=== PATIENT | male | born 1980 | race American Indian/Alaskan Native ===

== ENCOUNTER 2017-02-12 02:45 | Emergency (ER) | payer MEDICAID ==
[2017-02-12 02:46] VITALS: BMI 25.7
[2017-02-12 02:52] VITALS: BP 148/88; PULSE 89; RESP 18; TEMP 98.2; O2SAT 98
--- NOTE | 2017-02-12 03:11 | ED PDOC ---
Arrival/HPI - General Chief Complaint: Abnormal Skin Integrity Time Seen by Provider: 02/12/17 03:00 - History of Present Illness Narrative History of Present Illness (Text): 02/12/17 03:13 Conner Robledo is a 36 year old male, with a history of hypertension, diabetes, and asthma, presents to the emergency department for evaluation of 2 week duration of abscess to right thigh. Denies any surrounding erythema or discharge. Denies fever, chills, headache, dizziness, chest pain, difficulty breathing, or any other complaints at this time. Time/Duration: > week (2 weeks ) Symptom Onset: Gradual Symptom Course: Unchanged Severity Level: Mild Activities at Onset: Light Past Medical History - Provider Review Nursing Documentation Reviewed: Yes - Past History Past History: Non-Contributing - Infectious Disease Hx of Infectious Diseases: None - Tetanus Immunization Tetanus Immunization: Up to Date - Past Medical History Past Medical History: No Previous - Cardiac Hx Cardiac Disorders: Yes Hx Hypertension: Yes - Pulmonary Hx Respiratory Disorders: Yes Hx Asthma: Yes - Neurological Hx Neurological Disorder: No - HEENT Hx HEENT Disorder: No - Renal Hx Renal Disorder: No - Endocrine/Metabolic Hx Endocrine Disorders: Yes Hx Diabetes Mellitus Type 2: Yes (iddm) - Hematological/Oncological Hx Blood Disorders: No - Integumentary Hx Dermatological Disorder: No - Musculoskeletal/Rheumatological Hx Musculoskeletal Disorders: No - Gastrointestinal Hx Gastrointestinal Disorders: No - Genitourinary/Gynecological Hx Genitourinary Disorders: No - Psychiatric Hx Psychophysiologic Disorder: No Hx Substance Use: No - Past Surgical History Past Surgical History: No Previous - Surgical History Other/Comment: Mass removed from left axilla 03/12/15 - Anesthesia Hx Anesthesia: Yes Hx Anesthesia Reactions: No Hx Malignant Hyperthermia: No - Suicidal Assessment Feels Threatened In Home Enviroment: No Family/Social History - Physician Review Nursing Documentation Reviewed: Yes Family/Social History: No Known Family HX Smoking Status: Heavy Smoker > 10 Cigarettes Daily Hx Alcohol Use: Yes Hx Substance Use: No Substance used: marjuana Hx Substance Use Treatment: No Allergies/Home Meds Allergies/Adverse Reactions: Allergies No Known Allergies Allergy (Verified 07/26/16 09:14) Home Medications: Home Meds Medication Instructions Recorded Confirmed Insulin Detemir [Levemir] 10 units SC HS 07/26/16 07/26/16 Insulin Lispro [Humalog (Insulin 20 units SC TID 07/26/16 07/26/16 Lispro)] Review of Systems - Physician Review All systems were reviewed & negative as marked: Yes - Review of Systems Constitutional: Normal. absent: Fatigue, Fevers Respiratory: Normal. absent: SOB, Cough, Sputum Cardiovascular: Normal. absent: Chest Pain Skin: Abscess (right thigh abscess ) Psychiatric: Normal Physical Exam Vital Signs Reviewed: Yes Vital Signs Temp Pulse Resp BP Pulse Ox 02/12/17 02:48 98.2 F 89 18 148/88 98 Temperature: Afebrile Blood Pressure: Normal Pulse: Regular Respiratory Rate: Normal Appearance: Positive for: Well-Appearing, Non-Toxic, Comfortable Pain Distress: None Mental Status: Positive for: Alert and Oriented X 3 - Systems Exam Head: Present: Atraumatic, Normocephalic Pupils: Present: PERRL Conjunctiva: Present: Normal Respiratory/Chest: Present: Clear to Auscultation, Good Air Exchange. No: Respiratory Distress, Accessory Muscle Use Abdomen: Present: Normal Bowel Sounds. No: Tenderness, Distention, Peritoneal Signs Upper Extremity: Present: Normal Inspection. No: Cyanosis, Edema Lower Extremity: Present: Normal Inspection, Other (abscess to right thigh. ) Neurological: Present: GCS=15, CN II-XII Intact, Speech Normal Skin: Present: Warm, Dry, Normal Color. No: Rashes Psychiatric: Present: Alert, Oriented x 3, Normal Insight, Normal Concentration Medical Decision Making ED Course and Treatment: 02/12/17 03:20 Impression: A 36 year old male who presents to the emergency department for evaluation of abscess to right thigh. Progress Notes: I&D performed with minimal drainage. Will discharge patient on Bactrim. - Medication Orders Current Medication Orders: Discontinued Medications Trimethoprim/Sulfamethoxazole (Bactrim Ds Tab) 1 tab PO ONCE ONE PRN Reason: Protocol Stop: 02/12/17 03:23 Last Admin: 02/12/17 03:34 Dose: 1 TAB - Scribe Statement The provider has reviewed the documentation as recorded by the Alvin Banks Provider Attestation: All medical record entries made by the Premibanali were at my direction and personally dictated by me. I have reviewed the chart and agree that the record accurately reflects my personal performance of the history, physical exam, medical decision making, and the department course for this patient. I have also personally directed, reviewed, and agree with the discharge instructions and disposition. Disposition/Present on Arrival - Present on Arrival Any Indicators Present on Arrival: No History of DVT/PE: No History of Uncontrolled Diabetes: No Urinary Catheter: No History of Decub. Ulcer: No History Surgical Site Infection Following: None - Disposition Have Diagnosis and Disposition been Completed?: Yes Diagnosis: Abscess of thigh Disposition: HOME/ ROUTINE Disposition Time: 03:45 Condition: GOOD Discharge Instructions (ExitCare): Abscess (ED) Prescriptions: Sulfamethoxazole/Trimethoprim [Bactrim DS 800 mg-160 mg] 1 tab PO BID #14 tab Incision and Drainage - Consent obtained Consent obtained: Verbal - Performed by Performed by: Attending Physician - Indications Indications: Cutaneous abscess - Location Location: Right (thigh) - Anesthetic Anesthetic: Lidocaine 1% - Procedure Procedure: Usual prep and drape, cm incision (0.5) - Drained Drained: ml pus (3) - Post-procedure Post procedure: Dressed - Complications Complications: None - Patient tolerated procedure Patient tolerated procedure: Well
[2017-02-12] MEDS ORDERED: Tmp-Smz 800 mg-160 mg DS Tab PO ONE (03:22)
== END 2017-02-12 03:45 | disposition home or self-care (01) ==
LOC: ED 02:45
DX: L02.415 Cutaneous abscess of right lower limb (principal); E11.9 Type 2 diabetes mellitus without complications; Z79.4 Long term (current) use of insulin; F17.210 Nicotine dependence, cigarettes, uncomplicated; I10 Essential (primary) hypertension

== ENCOUNTER 2018-02-08 16:36 | Emergency (ER) | payer MEDICAID, OTHER ==
[2018-02-08 16:36] VITALS: BMI 25.7
[2018-02-08 16:44] VITALS: BP 128/88; PULSE 101; RESP 16; TEMP 97.8; O2SAT 98
[2018-02-08] MEDS ORDERED: Lidocaine 2% Viscous 100 ml PO STA (17:27)
--- NOTE | 2018-02-08 17:28 | ED PDOC ---
Arrival/HPI - General Historian: Patient - History of Present Illness Time/Duration: Other Context: Home <Luisa Wells - Last Filed: 02/11/18 23:22> <QuiqueSandrineKelby - Last Filed: 02/12/18 09:52> - General Chief Complaint: ENT Problem Time Seen by Provider: 02/08/18 17:23 - History of Present Illness Narrative History of Present Illness (Text): 02/08/18 17:23 This 37 yo male with pmh DM, presents to this ED c/o sore throat x 2 days. Patient stated it is painful to swallow. Patient denies sob, cp, urinary symptoms, fever, abdominal pain, n/v, or abnormal gait. (Luisa Wells) Past Medical History - Provider Review Nursing Documentation Reviewed: Yes - Past History Past History: Non-Contributing - Infectious Disease Hx of Infectious Diseases: None - Tetanus Immunization Tetanus Immunization: Up to Date - Past Medical History Past Medical History: No Previous - Cardiac Hx Cardiac Disorders: Yes Hx Hypertension: Yes - Pulmonary Hx Respiratory Disorders: Yes Hx Asthma: Yes - Neurological Hx Neurological Disorder: No - HEENT Hx HEENT Disorder: No - Renal Hx Renal Disorder: No - Endocrine/Metabolic Hx Endocrine Disorders: Yes Hx Diabetes Mellitus Type 2: Yes (iddm) - Hematological/Oncological Hx Blood Disorders: No - Integumentary Hx Dermatological Disorder: No - Musculoskeletal/Rheumatological Hx Musculoskeletal Disorders: No - Gastrointestinal Hx Gastrointestinal Disorders: No - Genitourinary/Gynecological Hx Genitourinary Disorders: No - Psychiatric Hx Psychophysiologic Disorder: No Hx Substance Use: Yes - Past Surgical History Past Surgical History: No Previous - Surgical History Other/Comment: Mass removed from left axilla 03/12/15 - Anesthesia Hx Anesthesia: Yes Hx Anesthesia Reactions: No Hx Malignant Hyperthermia: No - Suicidal Assessment Feels Threatened In Home Enviroment: No <Luisa Wells - Last Filed: 02/11/18 23:22> Family/Social History - Physician Review Nursing Documentation Reviewed: Yes Family/Social History: Other (noncontributory) Smoking Status: Heavy Smoker > 10 Cigarettes Daily Hx Alcohol Use: Yes Frequency of alcohol use: Socially Hx Substance Use: Yes Substance used: marjuana Hx Substance Use Treatment: No <Luisa Wells - Last Filed: 02/11/18 23:22> Allergies/Home Meds <Melba Wellsim P - Last Filed: 02/11/18 23:22> <QuiqueJamie - Last Filed: 02/12/18 09:52> Allergies/Adverse Reactions: Allergies No Known Allergies Allergy (Verified 02/08/18 16:38) Home Medications: Home Meds Medication Instructions Recorded Confirmed Insulin Detemir [Levemir] 10 units SC HS 07/26/16 02/08/18 Review of Systems - Review of Systems Constitutional: Normal. absent: Fatigue, Weight Change, Fevers Eyes: Normal ENT: Sore Throat Respiratory: Normal Cardiovascular: Normal Gastrointestinal: Normal Genitourinary Male: Normal Musculoskeletal: Normal Skin: Normal Neurological: Normal Endocrine: Normal Hemo/Lymphatic: Normal Psychiatric: Normal <Wells,Nahim P - Last Filed: 02/11/18 23:22> Physical Exam Temperature: Afebrile Blood Pressure: Normal Pulse: Regular Respiratory Rate: Normal Appearance: Positive for: Well-Appearing, Non-Toxic, Comfortable Pain Distress: None Mental Status: Positive for: Alert and Oriented X 3 - Systems Exam Head: Present: Atraumatic, Normocephalic Pupils: Present: PERRL Extroacular Muscles: Present: EOMI Conjunctiva: Present: Normal Ears: Present: Normal Mouth: Present: Moist Mucous Membranes Pharnyx: Present: ERYTHEMA. No: EXUDATE, TONSILS ENLARGED, Peritonsilar Swelling, Uvular Deviation, Muffled/Hoarse Voice, Strider, Soft Palate/Uvular Edema Neck: Present: Normal Range of Motion, Trachea Midline. No: Meningeal Signs Respiratory/Chest: Present: Clear to Auscultation, Good Air Exchange. No: Respiratory Distress, Accessory Muscle Use, Wheezes, Decreased Breath Sounds, Retracting, Rhonchi, Tachypneic Cardiovascular: Present: Regular Rate and Rhythm, Normal S1, S2. No: Murmurs Abdomen: No: Tenderness Upper Extremity: Present: Normal Inspection, Normal ROM Lower Extremity: Present: Normal Inspection, Normal ROM Neurological: Present: GCS=15, CN II-XII Intact, Speech Normal Skin: Present: Warm, Dry, Normal Color. No: Rashes Psychiatric: Present: Alert, Oriented x 3, Normal Insight, Normal Concentration <Wells,Nahim P - Last Filed: 02/11/18 23:22> Vital Signs Temp Pulse Resp BP Pulse Ox 02/08/18 16:39 97.8 F 101 H 16 128/88 98 Medical Decision Making <Luisa Wells - Last Filed: 02/11/18 23:22> <QuiqueSandrineKelby - Last Filed: 02/12/18 09:52> ED Course and Treatment: 02/08/18 20:57 Case was endorsed to Dr. Vu. Pending repeat FS glucose, and revaluation. (Luisa Wells) - Lab Interpretations Lab Results: 02/08/18 18:30 02/08/18 18:30 Lab Results 02/08/18 22:52: POC Glucose (mg/dL) 313 H 02/08/18 21:02: POC Glucose (mg/dL) 468 H* 02/08/18 20:03: POC Glucose (mg/dL) > 500 H* 02/08/18 18:30: Sodium 130 L, Potassium 5.3 H, Chloride 84 L, Carbon Dioxide 34 H, Anion Gap 18, BUN 31 H, Creatinine 1.4, Est GFR ( Amer) > 60, Est GFR (Non-Af Amer) 56, Random Glucose 736 H* D, Calcium 10.6 H, Total Bilirubin 0.8, AST 28, ALT 42, Alkaline Phosphatase 148 H, Total Protein 8.1, Albumin 4.5, Globulin 3.6, Albumin/Globulin Ratio 1.2 02/08/18 18:30: WBC 9.0, RBC 5.44, Hgb 16.7, Hct 49.4, MCV 90.8, MCH 30.7, MCHC 33.8, RDW 12.6, Plt Count 202, MPV 11.0, Gran % 54.9, Lymph % (Auto) 33.0, Patrick % (Auto) 7.9 H, Eos % (Auto) 3.9, Baso % (Auto) 0.3, Gran # 4.96, Lymph # (Auto ) 3.0, Patrick # (Auto) 0.7 H, Eos # (Auto) 0.4, Baso # (Auto) 0.03 - Medication Orders Current Medication Orders: Discontinued Medications Amoxicillin (Amoxil 500 Mg Cap) 500 mg PO STAT STA PRN Reason: Protocol Stop: 02/08/18 17:27 Last Admin: 02/08/18 20:20 Dose: 500 mg Sodium Chloride (Sodium Chloride 0.9%) 1,000 mls @ 999 mls/hr IV .Q1H1M STA Stop: 02/08/18 19:34 Last Admin: 02/08/18 18:42 Dose: 999 mls/hr eMAR Start Stop Document 02/08/18 18:42 HI (Rec: 02/08/18 18:42 HI [id number]) Intravenous Solution Start Date 02/08/18 Start Time 18:42 Sodium Chloride (Sodium Chloride 0.9%) 1,000 mls @ 999 mls/hr IV .Q1H1M STA Stop: 02/08/18 19:34 Last Admin: 02/08/18 18:42 Dose: 999 mls/hr eMAR Start Stop Document 02/08/18 18:42 HI (Rec: 02/08/18 18:42 HI [id number]) Intravenous Solution Start Date 02/08/18 Start Time 18:42 Insulin Human Regular (Humulin R) 10 units IVP STAT STA Stop: 02/08/18 19:57 Last Admin: 02/08/18 20:20 Dose: 10 units MAR Blood Glucose Document 02/08/18 20:20 HI (Rec: 02/08/18 20:20 HI [id number]) Blood Glucose Finger Stick Blood Glucose (70-120) 500 IVP Administration Document 02/08/18 20:20 HI (Rec: 02/08/18 20:20 HI [id number]) Charges for Administration # of IVP Administrations 1 Insulin Human Regular (Humulin R) 8 units SC STAT STA Stop: 02/08/18 21:19 Last Admin: 02/08/18 21:50 Dose: 8 units Subcutaneous Administrations Document 02/08/18 21:50 HI (Rec: 02/08/18 21:50 HI [id number]) Injection Site MAR Injection Site Left Abdomen Charges for Administration # of Subcutaneous Administrations 1 Lidocaine HCl (Lidocaine 2% Viscous) 15 ml PO STAT STA Stop: 02/08/18 17:42 Last Admin: 02/08/18 20:20 Dose: 15 ml - PA / DISTILLATION OPERATOR HELPER / Resident Statement MD/DO has reviewed & agrees with the documentation as recorded. <Quique,I'Kyori - Last Filed: 02/12/18 09:52> Disposition/Present on Arrival - Present on Arrival Any Indicators Present on Arrival: No History of DVT/PE: No History of Uncontrolled Diabetes: No Urinary Catheter: No History of Decub. Ulcer: No History Surgical Site Infection Following: None - Disposition Have Diagnosis and Disposition been Completed?: Yes Disposition Time: 21:30 <Luisa Wells - Last Filed: 02/11/18 23:22> <Jamie Lei - Last Filed: 02/12/18 09:52> - Disposition Diagnosis: Pharyngitis, Hyperglycemia due to type 1 diabetes mellitus Disposition: HOME/ ROUTINE Condition: GOOD Discharge Instructions (ExitCare): Sore Throat in Adults, Hyperglycemia, Adult (DC) Additional Instructions: Call private doctor for follow up visit in 1-2 days. Return to Emergency if symptoms worsen. Prescriptions: Amoxicillin 875 mg PO BID #20 tab Forms: Handle (Hebrew)
[2018-02-08] MEDS ORDERED: Sodium Chloride 0.9% 1,000 ML IV STA ×2 (18:34)
[2018-02-08 18:48] LABS: BASO # 0.03 K/mm3 (0.0-2.0); BASO % 0.3 % (0.0-3.0); EOS # 0.4 (0.0-0.7); EOS % 3.9 % (1.5-5.0); GRAN # 4.96 (1.4-6.5); GRAN % 54.9 % (50.0-68.0); HEMOGLOBIN 16.7 g/dL (14.0-18.0); MEAN CELL VOLUME 90.8 fl (80.0-105.0); MEAN CORPUSCULAR HEMOGLOBIN 30.7 pg (25.0-35.0); MEAN CORPUSCULAR HGB CONC 33.8 g/dl (31.0-37.0); MONO # 0.7 (0.1-0.6); MONO % 7.9 % (1.0-6.0); RBC 5.44 10^6/uL (3.5-6.1); RED CELL DISTRIBUTION WIDTH 12.6 % (11.5-14.5)
[2018-02-08 18:58] LABS: ALB/GLOB RATIO 1.2 (1.1-1.8); ALBUMIN 4.5 g/dL (3.0-4.8); ALT/SGPT 42 U/L (7-56); AST/SGOT 28 U/L (17-59); BLOOD UREA NITROGEN 31 mg/dL (7-21); CALCIUM 10.6 mg/dL (8.4-10.5); GFR AFRICAN-AMERICAN > 60; GFR NON-AFRICAN AMERICAN 56
[2018-02-08] MEDS ORDERED: Insulin Regular 1 UNITS/0.01 ML ML IVP STA (19:56)
[2018-02-08] MEDS ORDERED: Insulin Regular 1 UNITS/0.01 ML ML SC STA (21:18)
== END 2018-02-08 23:40 | disposition home or self-care (01) ==
LOC: ED 16:36
DX: J02.9 Acute pharyngitis, unspecified (principal); E11.65 Type 2 diabetes mellitus with hyperglycemia; Z79.4 Long term (current) use of insulin; F17.210 Nicotine dependence, cigarettes, uncomplicated
CPT/HCPCS: 80053; 82948; 85025; 96372; 96374; 99283; J7040

== ENCOUNTER 2018-02-15 21:36 | Emergency (ER) | payer MEDICAID ==
[2018-02-15 21:36] VITALS: BMI 25.7
[2018-02-15 22:11] VITALS: BP 147/96; PULSE 93; RESP 18; TEMP 98.1; O2SAT 99
--- NOTE | 2018-02-15 22:27 | ED PDOC ---
Arrival/HPI - General Historian: Patient - History of Present Illness Time/Duration: Other (2 days ago) <Gayatri Cai - Last Filed: 02/15/18 22:34> <Facundo Mina - Last Filed: 02/15/18 22:38> - General Chief Complaint: Abnormal Skin Integrity Time Seen by Provider: 02/15/18 22:22 - History of Present Illness Narrative History of Present Illness (Text): 02/15/18 22:24 37-year-old male presents today for evaluation of 2 superficial lacerations to the right hand over the second and third fingers. Patient states 2 days ago he sustained the lacerations while cutting a lemon. Patient denies numbness weakness or tingling in the extremity. Patient is complaining of slight pain at the laceration site. Patient states his tetanus is up to date. Patient believes it was in 2013. Patient denies fevers or chills. Denies dizziness or weakness. Patient denies limited range of motion of the finger. Patient states he cleaned the wound with peroxide. No other complaints (Gayatri Cai) Past Medical History - Provider Review Nursing Documentation Reviewed: Yes - Travel History Have you recently traveled outside [place] w/in the past 3 mons?: No - Past History Past History: Non-Contributing - Infectious Disease Hx of Infectious Diseases: None - Tetanus Immunization Tetanus Immunization: Up to Date - Past Medical History Past Medical History: No Previous - Cardiac Hx Cardiac Disorders: Yes Hx Hypertension: Yes - Pulmonary Hx Respiratory Disorders: Yes Hx Asthma: Yes - Neurological Hx Neurological Disorder: No - HEENT Hx HEENT Disorder: No - Renal Hx Renal Disorder: No - Endocrine/Metabolic Hx Endocrine Disorders: Yes Hx Diabetes Mellitus Type 2: Yes (iddm) - Hematological/Oncological Hx Blood Disorders: No - Integumentary Hx Dermatological Disorder: No - Musculoskeletal/Rheumatological Hx Musculoskeletal Disorders: No - Gastrointestinal Hx Gastrointestinal Disorders: No - Genitourinary/Gynecological Hx Genitourinary Disorders: No - Psychiatric Hx Psychophysiologic Disorder: No Hx Substance Use: Yes - Past Surgical History Past Surgical History: No Previous - Surgical History Other/Comment: Mass removed from left axilla 03/12/15 - Anesthesia Hx Anesthesia: Yes Hx Anesthesia Reactions: No Hx Malignant Hyperthermia: No - Suicidal Assessment Feels Threatened In Home Enviroment: No <Gayatri Cai - Last Filed: 02/15/18 22:34> Family/Social History - Physician Review Nursing Documentation Reviewed: Yes Family/Social History: Unknown Family HX Smoking Status: Heavy Smoker > 10 Cigarettes Daily Hx Alcohol Use: Yes Hx Substance Use: Yes Substance used: marjuana Hx Substance Use Treatment: No <Gayatri Cai - Last Filed: 02/15/18 22:34> Allergies/Home Meds <Gayatri Cai - Last Filed: 02/15/18 22:34> <Facundo Mina - Last Filed: 02/15/18 22:38> Allergies/Adverse Reactions: Allergies No Known Allergies Allergy (Verified 02/08/18 16:38) Home Medications: Home Meds Medication Instructions Recorded Confirmed Insulin Detemir [Levemir] 10 units SC HS 07/26/16 02/08/18 Review of Systems - Review of Systems Constitutional: absent: Fatigue, Fevers Respiratory: absent: SOB, Cough Cardiovascular: absent: Chest Pain, Palpitations Gastrointestinal: absent: Abdominal Pain, Nausea, Vomiting Musculoskeletal: Arthralgias Skin: Laceration Neurological: absent: Headache, Dizziness Psychiatric: absent: Anxiety, Depression, Suicidal Ideation <Gayatri Cai - Last Filed: 02/15/18 22:34> Physical Exam Vital Signs Reviewed: Yes Temperature: Afebrile Blood Pressure: Hypertensive Pulse: Regular Respiratory Rate: Normal Appearance: Positive for: Well-Appearing, Non-Toxic, Comfortable Pain Distress: None Mental Status: Positive for: Alert and Oriented X 3 - Systems Exam Head: Present: Atraumatic Respiratory/Chest: Present: Clear to Auscultation Cardiovascular: Present: Regular Rate and Rhythm Upper Extremity: Present: Normal ROM, NORMAL PULSES, Neurovascularly Intact, Capillary Refill < 2s, Other (right hand; there is a small 1cm superficial laceration noted to the lateral aspect of the distal 2nd finger and to the distal lateral aspect of the right 3rd finger. lacerations do not affect the nail. full rom of fingers. sensation and distal pulses intact. no erythema; no edema; cap refill <2. ). No: Tenderness, Swelling, Erythema, Deformity Neurological: Present: GCS=15 Skin: Present: Warm, Dry Psychiatric: Present: Alert, Oriented x 3 <Gayatri Cai - Last Filed: 02/15/18 22:34> Vital Signs Temp Pulse Resp BP Pulse Ox 02/15/18 22:08 98.1 F 93 H 18 147/96 H 99 Medical Decision Making <Gayatri Cai - Last Filed: 02/15/18 22:34> <Facundo Mina - Last Filed: 02/15/18 22:38> ED Course and Treatment: 02/15/18 22:27 Patient is nontoxic well appearing in no distress. Vital signs are stable. Wound irrigated well with high pressure irrigation Tetanus up to date; bactrim po wounds are 2 days old; will allow to heal by secondary intention. Bacitracin and dressing applied Patient was advised to keep the wound clean and dry, apply bacitracin twice daily. advised patient to take keflex as prescribed. Advised to return immediately if signs of infection develop or return if any other concerning symptoms develop. advised patient of elevated blood pressure and need for f/u with PMD. Patient verbalizes understanding of discharge instructions and need for immediate followup. all aspects of this case were discussed the attending of record. Impression: Laceration, fingers tylenol every 4 hours as needed for pain bactrim; 1 tablet twice daily x 7 days. Keep the wound clean and dry, apply bacitracin twice daily Return immediately if signs of infection develop: High fevers, increasing pain, redness, swelling, purulent discharge Follow up with the hand specialist within the next 2 days. Followup with primary care physician within the next 2 days regarding your elevated blood pressure. Return if any other concerning symptoms develop (Gayatri Cai) - Medication Orders Current Medication Orders: Discontinued Medications Trimethoprim/Sulfamethoxazole (Bactrim Ds Tab) 1 tab PO STAT STA PRN Reason: Protocol Stop: 02/15/18 22:32 - PA / CERTIFIED PATHOLOGY ASSISTANT / Resident Statement MD/DO has reviewed & agrees with the documentation as recorded. <Facundo Mina - Last Filed: 02/15/18 22:38> Disposition/Present on Arrival - Present on Arrival Any Indicators Present on Arrival: No History of DVT/PE: No History of Uncontrolled Diabetes: No Urinary Catheter: No History of Decub. Ulcer: No History Surgical Site Infection Following: None - Disposition Have Diagnosis and Disposition been Completed?: Yes Disposition Time: 22:30 Patient Plan: Discharge <Gayatri Cai - Last Filed: 02/15/18 22:34> <Facudno Mina - Last Filed: 02/15/18 22:38> - Disposition Diagnosis: Laceration of fingers without complication Disposition: HOME/ ROUTINE Patient Problems: Current Active Problems Problem Status Onset Laceration of fingers without complication Acute Condition: GOOD Discharge Instructions (ExitCare): Wound Care (DC) Additional Instructions: tylenol every 4 hours as needed for pain bactrim; 1 tablet twice daily x 7 days. Keep the wound clean and dry, apply bacitracin twice daily Return immediately if signs of infection develop: High fevers, increasing pain, redness, swelling, purulent discharge Follow up with the hand specialist within the next 2 days. Followup with primary care physician within the next 2 days regarding your elevated blood pressure. Return if any other concerning symptoms develop Prescriptions: Sulfamethoxazole/Trimethoprim [Bactrim DS 800 mg-160 mg] 1 tab PO BID #14 tab Referrals: Brett Jaimes MD [Staff Provider] - Follow up with primary Mustapha Espitia DO [Staff Provider] - Follow up with primary Forms: [email or web address] (Mauritanian), WORK NOTE
[2018-02-15] MEDS ORDERED: Tmp-Smz 800 mg-160 mg DS Tab PO STA (22:31)
== END 2018-02-15 23:00 | disposition home or self-care (01) ==
LOC: ED 21:36
DX: S61.411A Laceration without foreign body of right hand, initial encounter (principal); W45.8XXA Other foreign body or object entering through skin, initial encounter; E11.9 Type 2 diabetes mellitus without complications; Z79.4 Long term (current) use of insulin; I10 Essential (primary) hypertension; F17.210 Nicotine dependence, cigarettes, uncomplicated

== ENCOUNTER 2018-02-18 18:53 | Emergency (ER) | payer MEDICAID ==
[2018-02-18 18:53] VITALS: BMI 25.7
[2018-02-18 19:11] VITALS: TEMP 98.7
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
[2018-02-19 05:13] VITALS: BP 134/76; PULSE 88; RESP 22; O2SAT 98
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
== END 2018-02-18 23:15 | disposition home or self-care (01) ==
LOC: ED 18:53
DX: S09.90XA Unspecified injury of head, initial encounter (principal); Y08.89XA Assault by other specified means, initial encounter; Y92.9 Unspecified place or not applicable

== ENCOUNTER 2018-03-29 11:33 | Emergency (ER) | payer MEDICAID ==
[2018-03-29 11:44] VITALS: BMI 21.6
[2018-03-29 11:46] VITALS: RESP 18; TEMP 98.7
--- NOTE | 2018-03-29 12:05 | ED PDOC ---
Arrival/HPI - General Time Seen by Provider: 03/29/18 12:00 Historian: Patient - History of Present Illness Narrative History of Present Illness (Text): 03/29/18 12:02 38yo male with PMHx of Diabetes who present with left lower molar toothache x days. States he didn't take any pain medication. He came to ED today for the persistent pain. Denies any other complaint. Past Medical History - Provider Review Nursing Documentation Reviewed: Yes - Past History Past History: Non-Contributing - Infectious Disease Hx of Infectious Diseases: None - Tetanus Immunization Tetanus Immunization: Up to Date - Past Medical History Past Medical History: No Previous - Cardiac Hx Cardiac Disorders: Yes Hx Hypertension: Yes - Pulmonary Hx Respiratory Disorders: Yes Hx Asthma: Yes - Neurological Hx Neurological Disorder: No - HEENT Hx HEENT Disorder: No - Renal Hx Renal Disorder: No - Endocrine/Metabolic Hx Endocrine Disorders: Yes Hx Diabetes Mellitus Type 2: Yes (iddm) - Hematological/Oncological Hx Blood Disorders: No - Integumentary Hx Dermatological Disorder: No - Musculoskeletal/Rheumatological Hx Musculoskeletal Disorders: No - Gastrointestinal Hx Gastrointestinal Disorders: No - Genitourinary/Gynecological Hx Genitourinary Disorders: No - Psychiatric Hx Psychophysiologic Disorder: No Hx Substance Use: Yes - Past Surgical History Past Surgical History: No Previous - Surgical History Other/Comment: Mass removed from left axilla 03/12/15 - Anesthesia Hx Anesthesia: Yes Hx Anesthesia Reactions: No Hx Malignant Hyperthermia: No - Suicidal Assessment Feels Threatened In Home Enviroment: No Family/Social History - Physician Review Nursing Documentation Reviewed: Yes Family/Social History: Unknown Family HX Smoking Status: Heavy Smoker > 10 Cigarettes Daily Hx Alcohol Use: Yes Hx Substance Use: Yes Substance used: marjuana Hx Substance Use Treatment: No Allergies/Home Meds Allergies/Adverse Reactions: Allergies No Known Allergies Allergy (Verified 02/18/18 19:04) Review of Systems - Physician Review All systems were reviewed & negative as marked: Yes - Review of Systems Constitutional: Normal Eyes: Normal ENT: Other (toothache) Respiratory: Normal Cardiovascular: Normal Gastrointestinal: Normal Genitourinary Male: Normal Musculoskeletal: Normal Skin: Normal Neurological: Normal Endocrine: Normal Hemo/Lymphatic: Normal Psychiatric: Normal Physical Exam Vital Signs Reviewed: Yes Vital Signs Temp Pulse Resp BP Pulse Ox 03/29/18 11:44 98.7 F 89 18 120/78 97 Temperature: Afebrile Blood Pressure: Normal Pulse: Regular Respiratory Rate: Normal Appearance: Positive for: Well-Appearing, Non-Toxic, Comfortable Pain Distress: None Mental Status: Positive for: Alert and Oriented X 3 - Systems Exam Head: Present: Atraumatic, Normocephalic Pupils: Present: PERRL Extroacular Muscles: Present: EOMI Conjunctiva: Present: Normal Mouth: Present: Moist Mucous Membranes, Normal Teeth (No loose tooth. No gum swelling) Neck: Present: Normal Range of Motion Respiratory/Chest: Present: Clear to Auscultation, Good Air Exchange. No: Respiratory Distress, Accessory Muscle Use Cardiovascular: Present: Regular Rate and Rhythm, Normal S1, S2. No: Murmurs Abdomen: No: Tenderness, Distention, Peritoneal Signs Back: Present: Normal Inspection Upper Extremity: Present: Normal Inspection. No: Cyanosis, Edema Lower Extremity: Present: Normal Inspection. No: Edema Neurological: Present: GCS=15, CN II-XII Intact, Speech Normal Skin: Present: Warm, Dry, Normal Color. No: Rashes Psychiatric: Present: Alert, Oriented x 3, Normal Insight, Normal Concentration Disposition/Present on Arrival - Present on Arrival Any Indicators Present on Arrival: No History of DVT/PE: No History of Uncontrolled Diabetes: No Urinary Catheter: No History Surgical Site Infection Following: None - Disposition Have Diagnosis and Disposition been Completed?: Yes Diagnosis: Dental caries Disposition: HOME/ ROUTINE Disposition Time: 12:05 Patient Plan: Discharge Condition: STABLE Discharge Instructions (ExitCare): Dental Pain (DC) Additional Instructions: Follow up with a Dentist Return to ED for any new or worsening symptoms Prescriptions: Amoxicillin 500 mg PO TID #21 tablet Ibuprofen [Motrin Tab] 600 mg PO Q6 #20 tab Referrals: [facility] [place] - Follow up with primary
[2018-03-29 12:34] VITALS: BP 124/72; PULSE 82; O2SAT 99
== END 2018-03-29 12:33 | disposition home or self-care (01) ==
LOC: ED 11:33
DX: K02.9 Dental caries, unspecified (principal); E11.9 Type 2 diabetes mellitus without complications; I10 Essential (primary) hypertension; F17.210 Nicotine dependence, cigarettes, uncomplicated

== ENCOUNTER 2018-03-31 17:20 | Emergency (ER) | payer MEDICAID ==
[2018-03-31 17:20] VITALS: BMI 21.6
[2018-03-31] MEDS ORDERED: Sodium Chloride 0.9% 1,000 ML IV STA (17:58)
[2018-03-31 18:26] LABS: BASO # 0.03 K/mm3 (0.0-2.0); BASO % 0.5 % (0.0-3.0); EOS # 0.2 (0.0-0.7); EOS % 3.4 % (1.5-5.0); GRAN # 3.97 (1.4-6.5); GRAN % 61.9 % (50.0-68.0); HEMOGLOBIN 13.7 g/dL (14.0-18.0); LYMPH # 1.7 (1.2-3.4); LYMPH % 26.9 % (22.0-35.0); MEAN CELL VOLUME 89.9 fl (80.0-105.0); MEAN CORPUSCULAR HGB CONC 33.3 g/dl (31.0-37.0); MEAN PLATELET VOLUME 10.4 fl (7.0-11.0); MONO # 0.5 (0.1-0.6); MONO % 7.3 % (1.0-6.0); RBC 4.57 10^6/uL (3.5-6.1); RED CELL DISTRIBUTION WIDTH 14.2 % (11.5-14.5); WHITE BLOOD COUNT 6.4 10^3/ul (4.5-11.0)
--- NOTE | 2018-03-31 18:37 | RAD ---
HISTORY: r/o infiltrate COMPARISON: 03/04/2015. FINDINGS: LUNGS: The lungs are well inflated and clear. PLEURA: No significant pleural effusion identified, no pneumothorax apparent. CARDIOVASCULAR: Normal. OSSEOUS STRUCTURES: No significant abnormalities. VISUALIZED UPPER ABDOMEN: Normal. OTHER FINDINGS: None. IMPRESSION: No active pulmonary disease.
--- NOTE | 2018-03-31 18:40 | ED PDOC ---
Arrival/HPI - General Chief Complaint: Altered Mental Status Time Seen by Provider: 03/31/18 17:22 Historian: Patient - History of Present Illness Narrative History of Present Illness (Text): 03/31/18 18:39 A 38 year old male, whose past medical history includes diabetes, is brought into the emergency department via BLS. As per EMS, patient was initially altered. Patient is awake and alert in the emergency department. He states that he was mildly dizzy. He admits to occasional alcohol use. The patient denies fevers, chills, headache, chest pain, shortness of breath, dyspnea on exertion, cough, abdominal pain, nausea, vomiting, diarrhea, back pain, neck pain, urinary /bowel changes, drug use, or any other complaint. Time/Duration: Prior to Arrival Symptom Onset: Sudden Symptom Course: Unchanged Activities at Onset: Rest, Light Context: Home Past Medical History - Provider Review Nursing Documentation Reviewed: Yes - Past History Past History: Non-Contributing - Infectious Disease Hx of Infectious Diseases: None - Tetanus Immunization Tetanus Immunization: Up to Date - Past Medical History Past Medical History: No Previous - Cardiac Hx Cardiac Disorders: Yes Hx Hypertension: Yes - Pulmonary Hx Respiratory Disorders: Yes Hx Asthma: Yes - Neurological Hx Neurological Disorder: No - HEENT Hx HEENT Disorder: No - Renal Hx Renal Disorder: No - Endocrine/Metabolic Hx Endocrine Disorders: Yes Hx Diabetes Mellitus Type 2: Yes (iddm) - Hematological/Oncological Hx Blood Disorders: No - Integumentary Hx Dermatological Disorder: No - Musculoskeletal/Rheumatological Hx Musculoskeletal Disorders: No - Gastrointestinal Hx Gastrointestinal Disorders: No - Genitourinary/Gynecological Hx Genitourinary Disorders: No - Psychiatric Hx Psychophysiologic Disorder: No Hx Substance Use: Yes - Past Surgical History Past Surgical History: No Previous - Surgical History Other/Comment: Mass removed from left axilla 03/12/15 - Anesthesia Hx Anesthesia: Yes Hx Anesthesia Reactions: No Hx Malignant Hyperthermia: No - Suicidal Assessment Feels Threatened In Home Enviroment: No Family/Social History - Physician Review Nursing Documentation Reviewed: Yes Family/Social History: No Known Family HX Smoking Status: Light Smoker < 10 Cigarettes Daily Hx Alcohol Use: Yes Frequency of alcohol use: Few days per week Hx Substance Use: Yes Substance used: marjuana Hx Substance Use Treatment: No Allergies/Home Meds Allergies/Adverse Reactions: Allergies No Known Allergies Allergy (Verified 03/31/18 17:35) Home Medications: Home Meds Medication Instructions Recorded Confirmed Unobtainable 03/31/18 03/31/18 Review of Systems - Physician Review All systems were reviewed & negative as marked: Yes - Review of Systems Constitutional: absent: Fevers, Night Sweats Respiratory: absent: SOB, Cough Cardiovascular: absent: Chest Pain, BANSAL Gastrointestinal: absent: Abdominal Pain, Stool Changes, Diarrhea, Nausea, Vomiting Genitourinary Male: absent: Urinary Output Changes Musculoskeletal: absent: Back Pain, Neck Pain Neurological: Dizziness. absent: Headache Physical Exam Vital Signs Reviewed: Yes Vital Signs Temp Pulse Resp BP Pulse Ox 03/31/18 17:40 97.9 F 104 H 20 139/74 98 Temperature: Afebrile Blood Pressure: Normal Pulse: Tachycardic Respiratory Rate: Normal Appearance: Positive for: Well-Appearing, Non-Toxic, Comfortable Pain Distress: None Mental Status: Positive for: Alert and Oriented X 3 - Systems Exam Head: Present: Atraumatic, Normocephalic Pupils: Present: PERRL Extroacular Muscles: Present: EOMI Conjunctiva: Present: Normal Mouth: Present: Moist Mucous Membranes Neck: Present: Normal Range of Motion Respiratory/Chest: Present: Clear to Auscultation, Good Air Exchange. No: Respiratory Distress, Accessory Muscle Use Cardiovascular: Present: Regular Rate and Rhythm, Normal S1, S2. No: Murmurs Abdomen: No: Tenderness, Distention, Peritoneal Signs Back: Present: Normal Inspection Upper Extremity: Present: Normal Inspection. No: Cyanosis, Edema Lower Extremity: Present: Normal Inspection. No: Edema Neurological: Present: GCS=15, CN II-XII Intact, Speech Normal Skin: Present: Warm, Dry, Normal Color. No: Rashes Psychiatric: Present: Alert, Oriented x 3, Normal Insight, Normal Concentration Medical Decision Making ED Course and Treatment: 03/31/18 18:39 Impression: Plan: -- EKG -- Chest X-ray -- Labs -- Urine Culture -- Urinalysis -- IV Fluids -- Reassess and disposition Progress Notes: EKG: Ordered, reviewed, and independently interpreted the EKG. Rate : 91 BPM Rhythm : NSR Interpretation : Normal axis.Normal rate. Chest X-ray Dictated By: Carmen Alex MD Dictated Date/Time: 03/31/18 18:35 IMPRESSION: No active pulmonary disease. - Lab Interpretations Lab Results: 03/31/18 18:08 03/31/18 20:21 Lab Results 03/31/18 20:21: Sodium 141, Potassium 4.3, Chloride 102, Carbon Dioxide 29, Anion Gap 14, BUN 18, Creatinine 0.9, Est GFR ( Amer) > 60, Est GFR (Non- Af Amer) > 60, Random Glucose 313 H* D, Calcium 9.2, Magnesium 1.5 L, Total Bilirubin 0.6, AST 13 L D, ALT 23, Alkaline Phosphatase 74, Lactate Dehydrogenase 313 L, Total Creatine Kinase 87, Troponin I < 0.01, Total Protein 6.7, Albumin 3.8, Globulin 2.9, Albumin/Globulin Ratio 1.3 03/31/18 18:08: Alcohol, Quantitative < 10 03/31/18 18:08: WBC 6.4 D, RBC 4.57, Hgb 13.7 L D, Hct 41.1 L, MCV 89.9, MCH 30.0, MCHC 33.3, RDW 14.2, Plt Count 220, MPV 10.4, Gran % 61.9, Lymph % (Auto) 26.9, Gillespie % (Auto) 7.3 H, Eos % (Auto) 3.4, Baso % (Auto) 0.5, Gran # 3.97, Lymph # (Auto) 1.7, Gillespie # (Auto) 0.5, Eos # (Auto) 0.2, Baso # (Auto) 0.03 I have reviewed the lab results: Yes - RAD Interpretation Radiology Orders: 03/31/18 17:40 CHEST PORTABLE [RAD] Stat - EKG Interpretation Interpreted by ED Physician: Yes Type: 12 lead EKG - Medication Orders Current Medication Orders: Discontinued Medications Sodium Chloride (Sodium Chloride 0.9%) 1,000 mls @ 999 mls/hr IV .Q1H1M STA Stop: 03/31/18 18:58 Last Admin: 03/31/18 18:17 Dose: 999 mls/hr eMAR Start Stop Document 03/31/18 18:17 [facility] (Rec: 03/31/18 18:17 [id number]) Intravenous Solution Start Date 03/31/18 Start Time 18:17 End Date 03/31/18 End time 19:17 Total Infusion Time 60 - Scribe Statement The provider has reviewed the documentation as recorded by the Scribe Lizbet Lin Provider Alvin Attestation: All medical record entries made by the Scribe were at my direction and personally dictated by me. I have reviewed the chart and agree that the record accurately reflects my personal performance of the history, physical exam, medical decision making, and the department course for this patient. I have also personally directed, reviewed, and agree with the discharge instructions and disposition. Disposition/Present on Arrival - Present on Arrival Any Indicators Present on Arrival: No History of DVT/PE: No History of Uncontrolled Diabetes: No Urinary Catheter: No History of Decub. Ulcer: No History Surgical Site Infection Following: None - Disposition Have Diagnosis and Disposition been Completed?: Yes Diagnosis: Hyperglycemia Disposition: HOME/ ROUTINE Disposition Time: 20:30 Patient Problems: Current Active Problems Problem Status Onset Hyperglycemia Acute Condition: IMPROVED Discharge Instructions (ExitCare): Hyperglycemia, Adult (DC), Diabetes and Diet Additional Instructions: Thank you for letting us take care of you today. The emergency medical care you received today was directed at your acute symptoms. If you were prescribed any medication, please fill it and take as directed. It may take several days for your symptoms to resolve. Return to the Emergency Department if your symptoms worsen, do not improve, or if you have any other problems. Please contact your doctor or call one of the physicians/clinics you have been referred to that are listed on the Patient Visit Information form that is included in your discharge packet. Bring any paperwork you were given at discharge with you along with any medications you are taking to your follow up visit. Our treatment cannot replace ongoing medical care by a primary care provider (PCP) outside of the emergency department. Thank you for allowing the [facility] team to be part of your care today. Follow up with your primary care doctor in 2-3 days for re-evaluation and further management. Referrals: Algaeonrios Lindsey Relico, [Primary Care Provider] - Follow up with primary Forms: [employer] (French)
[2018-03-31 20:48] LABS: ALB/GLOB RATIO 1.3 (1.1-1.8); ALBUMIN 3.8 g/dL (3.0-4.8); ALT/SGPT 23 U/L (7-56); AST/SGOT 13 U/L (17-59); BLOOD UREA NITROGEN 18 mg/dL (7-21); CALCIUM 9.2 mg/dL (8.4-10.5); GFR AFRICAN-AMERICAN > 60; GFR NON-AFRICAN AMERICAN > 60
[2018-03-31 21:25] LABS: TROPONIN I < 0.01 ng/mL
--- NOTE | 2018-03-31 22:27 | CARD ---
APPROVED REPORT EKG Measurement Heart [id number] <Conclusion> Normal sinus rhythm Normal ECG
[2018-03-31 22:36] VITALS: BP 136/76; PULSE 88; RESP 18; TEMP 98.1; O2SAT 99
== END 2018-03-31 21:22 | disposition home or self-care (01) ==
LOC: ED 17:20
DX: E11.65 Type 2 diabetes mellitus with hyperglycemia (principal); Z79.4 Long term (current) use of insulin; I10 Essential (primary) hypertension; F17.210 Nicotine dependence, cigarettes, uncomplicated
CPT/HCPCS: 71045; 80053; 80320; 82550; 83615; 83735; 84484; 85025; 93005; 96360; 99284; J7030

== ENCOUNTER 2018-04-03 11:58 | Emergency (ER) | payer MEDICAID ==
[2018-04-03 12:01] VITALS: BMI 21.6
[2018-04-03 12:13] VITALS: BP 119/91; PULSE 87; RESP 18; TEMP 98.2; O2SAT 100
[2018-04-03] MEDS ORDERED: Oxycodone/Acetaminophen 5/325 mg Tab PO STA (12:17)
--- NOTE | 2018-04-03 12:30 | ED PDOC ---
Arrival/HPI - General Chief Complaint: Back Pain Time Seen by Provider: 04/03/18 12:07 Historian: Patient - History of Present Illness Narrative History of Present Illness (Text): 04/03/18 12:17 pt p/w + 1 day onset of atrumatic neck pain/stiffness, right > left; pt states he usually sleeps on his left side; pt states pain worse today after waking up; pt denied fall/trauma/sick contact, travel; pt states no arm weakness/numbness/ tingling, no fever/chills/sweats, no sore throat, no vision changes, no cp/sob/ abd pain, no n/v, no urinary/bowel changes; pt had been to the Emergency department frequently over the last few weeks; pt denied any recent drug use; pt denied other complaints pt is here for further eval. [facility] pt is left hand dominate Time/Duration: 24 hours Symptom Onset: Sudden Symptom Course: Unchanged Quality: Tightness, Cramping Severity Level: Severe Activities at Onset: Rest Context: Home Past Medical History - Provider Review Nursing Documentation Reviewed: Yes - Travel History Have you recently traveled outside [place] w/in the past 3 mons?: No - Past History Past History: Non-Contributing - Infectious Disease Hx of Infectious Diseases: None - Tetanus Immunization Tetanus Immunization: Up to Date - Past Medical History Past Medical History: No Previous - Cardiac Hx Cardiac Disorders: Yes Hx Hypertension: Yes - Pulmonary Hx Respiratory Disorders: Yes Hx Asthma: Yes - Neurological Hx Neurological Disorder: No - HEENT Hx HEENT Disorder: No - Renal Hx Renal Disorder: No - Endocrine/Metabolic Hx Endocrine Disorders: Yes Hx Diabetes Mellitus Type 2: Yes (iddm) - Hematological/Oncological Hx Blood Disorders: No - Integumentary Hx Dermatological Disorder: No - Musculoskeletal/Rheumatological Hx Musculoskeletal Disorders: No - Gastrointestinal Hx Gastrointestinal Disorders: No - Genitourinary/Gynecological Hx Genitourinary Disorders: No - Psychiatric Hx Psychophysiologic Disorder: No Hx Substance Use: Yes - Past Surgical History Past Surgical History: No Previous - Surgical History Other/Comment: Mass removed from left axilla 03/12/15 - Anesthesia Hx Anesthesia: Yes Hx Anesthesia Reactions: No Hx Malignant Hyperthermia: No - Suicidal Assessment Feels Threatened In Home Enviroment: No Family/Social History - Physician Review Nursing Documentation Reviewed: Yes Family/Social History: No Known Family HX Smoking Status: Light Smoker < 10 Cigarettes Daily Hx Alcohol Use: Yes Hx Substance Use: Yes [facility] Hx Substance Use Treatment: No Allergies/Home Meds Allergies/Adverse Reactions: Allergies No Known Allergies Allergy (Verified 03/31/18 17:35) Review of Systems - Review of Systems Constitutional: Normal Eyes: Normal ENT: Normal Respiratory: Normal Cardiovascular: Normal Gastrointestinal: Normal Genitourinary Male: Normal Musculoskeletal: Neck Pain. absent: Arthralgias, Back Pain, Joint Swelling, Myalgias Skin: Normal Neurological: Normal Endocrine: Normal Hemo/Lymphatic: Normal Psychiatric: Normal Physical Exam - Physical Exam Narrative Physical Exam (Text): 04/03/18 12:18 General: alert/awake, GCS = 15, oriented x 3, resting in bed, uncomfortable, cooperative, interactive; mild distress due to pain Head: NC/AT EYE: PERRLA, EOMI, sclera anicteric, no nystagmus, no photophobia; visual field intact b/l Facial: WNL Oral: uvula/tongue are midline, no exudate/lesions, no drooling/stridor, no dysphonia; fair dentitions; moist oral mucosa NECK: mild decr ROM (looking to his right is more difficult for the patient than left, and hyperextension/flexion of the neck gave patient some difficulty) , pt is able to range his neck however, no midline tenderness, no nuchal rigidity, no meningeal signs; no step off Chest: CTA b/l, no w/r/r; no tachypenia, no accessory muscle use noted Chest Wall: no crepitus, no lesions, no gross deformities, no focal tenderness Cardiac: +S1, +S2, no m/r/r, no tachycardia Abdominal: +BS, soft/nd/nt, well nourished patient; no masses/rebound/guarding/ rigidity; no zhu's sign, no mcburney's point tenderness Extremities: intact ROM, strength 5/5 grossly intact in all limbs, neurovasc intact b/l; + ambulatory; reflex +2/2; pt is able to shrug b/l shoulder with ease; no focal weakness noted BACK: no step off, no midline tenderness, NO crepitus, no gross deformities noted; Intact ROM SKIN: cap refill < 1 sec, no ulcerations, no petechiae, no rashes; no pallor NEURO: CNII-XII WNL, no facial asymmetries, no slurr speech, oriented x 3 NIH stroke scale ~ 0 Psych: normal insight, flat affect; follows command with ease Vital Signs Reviewed: Yes Vital Signs Temp Pulse Resp BP Pulse Ox 04/03/18 12:01 98.2 F 87 18 119/91 H 100 Temperature: Afebrile Blood Pressure: Hypertensive Pulse: Regular Respiratory Rate: Normal Appearance: Positive for: Well-Appearing, Non-Toxic, Uncomfortable. No: Ill- Appearing, Unkept Pain Distress: Mild Mental Status: Positive for: Alert and Oriented X 3 - Systems Exam Head: Present: Atraumatic, Normocephalic Medical Decision Making ED Course and Treatment: 04/03/18 12:15 Impression: right sided neck pain/stiffness, atrumatic i have consider all the differential diagnosis regarding pt's chief medical complaints/clinical findings, including but are not limited to: cervical strain , unlikely torticollis, unlikely meningitis A/P: neck pain/stiffness - ct - accucheck - supportive care - observe/reevaluation 04/03/18 13:12 pt is doing well currently pt is able to range his neck with some improvement compare to initial evaluation , after medications provided for the patient pt is awaiting his diagnostic results 04/03/18 13:57 pt remained comfortable pt is not in any distress pt is made aware of his medical results pt is encouraged avoid heavy lifting pt is encouraged avoid sleeping on his side pt is encouraged no drug use/smoking/drinking alcohol pt is encouraged outpt f/u pt will be discharged home Re-evaluation Time: 13:12 Reassessment Condition: Improving,but remains with symptoms - Lab Interpretations I have reviewed the lab results: Yes Interpretation: All labs normal - RAD Interpretation Narrative RAD Interpretations (Text): 04/03/18 13:50 This report is currently processing and HAS NOT BEEN OFFICIALLY SIGNED BY THE PHYSICIAN - ESTIMATED TIME OF APPROVAL IS 04/03/2018 13:55. PROCEDURE: CT Cervical Spine without contrast HISTORY: Neck stiffness and pain. No trauma. COMPARISON: None available. TECHNIQUE: Contiguous helical/ transaxial computed tomography images were obtained of the cervical spine without the use of intravenous contrast. Coronal and sagittal reformatted images were created and reviewed. Radiation dose: Total exam DLP = 668.81 mGy-cm. This CT exam was performed using one or more of the following dose reduction techniques: Automated exposure control, adjustment of the mA and/or kV according to patient size, and/or use of iterative reconstruction technique. . FINDINGS: VERTEBRAE: The current study reveals no acute compression fractures no retropulsed fragments. . There is mild chronic appearing anterior stature loss of the C5 and C6 segments felt to be degenerative in origin. The remaining vertebral bodies otherwise exhibit normal stature. And facets. There is rather mild reversal of the normal upper cervical lordosis however vertebral bodies are otherwise normally aligned. Facets exhibit normal alignment. DISCS/SPINAL CANAL/NEURAL FORAMINA: Degenerative spondylosis. At the C5-C6 level, there is disc space narrowing more so along the anterior disc margin with broad-based though somewhat asymmetric disc bulge larger on the right than left with compression of the ventral surface of the thecal sac and spinal cord again more so on the right than left. Central canal appears slightly narrowed at this level as well. The uncovertebral joints are hypertrophic left greater than right. Right exit foramen adequate. Left exit foramen is marginal to slightly narrowed. At the C4-C5 level, there is mild anterior disc space narrowing. Minimal the asymmetric disc bulge slightly larger on the left than right results in some flattening of the ventral surface of the thecal sac. The disc appears to reach the ventral surface of the spinal cord. Exit foramina adequate. . At the C3-C4 level, there is small central and bilateral disc bulge asymmetrically larger on the left than right that indents the ventral surface of the thecal sac and may minimally flatten the ventral surface of the cord. Central canal is slightly narrowed. Exit foramina are adequate bilaterally. PARASPINAL SOFT TISSUES: Unremarkable. OTHER FINDINGS: Lung apices clear. IMPRESSION: No acute fractures. Chronic anterior stature loss of the C5 and C6 segments felt to be degenerative in origin. Multilevel degenerative spondylosis most significantly affecting C5-C6 through the C3-C4 levels as detailed above. 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 Yes Sleep Is patient sleeping during reassessment? No Presence of Pain Presence of Pain Yes Pain Scale Used Pain Scale Used Numeric Location Pain Location Body Site Neck Description Description Constant Intensity of Pain at present 9 Aggravating Factors ADL's IM Administration Charges Document 04/03/18 12:30 OCS (Rec: 04/03/18 12:30 OCS [id number]) Injection Site MAR Injection Site Left Deltoid Charges for Administration # of IM Administrations 1 Oxycodone/Acetaminophen (Percocet 5/325 Mg Tab) 1 tab PO STAT STA Stop: 04/03/18 12:18 Last Admin: 04/03/18 12:30 Dose: 1 tab MAR Pain Assessment Document 04/03/18 12:30 OCS (Rec: 04/03/18 12:30 OCS [id number]) Pain Reassessment Is this a pain reassessment? Yes Sleep Is patient sleeping during reassessment? No Presence of Pain Presence of Pain Yes Location Pain Location Body Site Neck Description Description Constant Intensity of Pain at present 9 Aggravating Factors ADL's Disposition/Present on Arrival - Present on Arrival Any Indicators Present on Arrival: No History of DVT/PE: No History of Uncontrolled Diabetes: No Urinary Catheter: No History of Decub. Ulcer: No History Surgical Site Infection Following: None - Disposition Have Diagnosis and Disposition been Completed?: Yes Diagnosis: Cervical muscle strain, General medical exam Disposition: HOME/ ROUTINE Disposition Time: 13:50 Patient Plan: Discharge Condition: STABLE Discharge Instructions (ExitCare): Muscle Strain (DC), Cervical Muscle Strain ( DC) Print Language: GREEK Additional Instructions: Make sure to see your doctor in 1-2 days DRINK PLENTY OF FLUIDS DONT SMOKE DONT DO DRUGS DONT Drink alcohol take your medications as prescribed try to sleep on your back, and avoid sleeping on your side AVOID heavy lifting RETURN TO ED IF worse pain, cant breath, persistent vomiting, high fever >101- 102 for hours, altered behavior, slurr speech, facial changes, focal weakness ( arm/leg or both), cant feel your arm/legs, unable to urinate, heavy/persistent bleeding, passing out, chest pain, or other medical emergencies Prescriptions: diaZEpam [Valium] 5 mg PO TID PRN #10 tab PRN Reason: Muscle Spasm Ibuprofen [Motrin] 600 mg PO QID PRN #30 tab PRN Reason: Pain, Mild (1-3) oxyCODONE/Acetaminophen [Percocet 5/325 mg Tab] 1 ea PO TID PRN #10 tab PRN Reason: Pain, Moderate (4-7) Referrals: PCP,NO [Non-Staff] - Follow up with primary Asmita Brennan MD [Staff Provider] - Follow up with primary [facility] [Outside] - Follow up with primary [facility] [Outside] - Follow up with primary [facility] [Outside] - Follow up with primary Forms: [employer] (Maori)
--- NOTE | 2018-04-03 13:51 | CT ---
PROCEDURE: CT Cervical Spine without contrast HISTORY: Neck stiffness and pain. No trauma. COMPARISON: None available. TECHNIQUE: Contiguous helical/ transaxial computed tomography images were obtained of the cervical spine without the use of intravenous contrast. Coronal and sagittal reformatted images were created and reviewed. Radiation dose: Total exam DLP = 668.81 mGy-cm. This CT exam was performed using one or more of the following dose reduction techniques: Automated exposure control, adjustment of the mA and/or kV according to patient size, and/or use of iterative reconstruction technique. . FINDINGS: VERTEBRAE: The current study reveals no acute compression fractures no retropulsed fragments. . There is mild chronic appearing anterior stature loss of the C5 and C6 segments felt to be degenerative in origin. The remaining vertebral bodies otherwise exhibit normal stature. And facets. There is rather mild reversal of the normal upper cervical lordosis however vertebral bodies are otherwise normally aligned. Facets exhibit normal alignment. DISCS/SPINAL CANAL/NEURAL FORAMINA: Degenerative spondylosis. At the C5-C6 level, there is disc space narrowing more so along the anterior disc margin with broad-based though somewhat asymmetric disc bulge larger on the right than left with compression of the ventral surface of the thecal sac and spinal cord again more so on the right than left. Central canal appears slightly narrowed at this level as well. The uncovertebral joints are hypertrophic left greater than right. Right exit foramen adequate. Left exit foramen is marginal to slightly narrowed. At the C4-C5 level, there is mild anterior disc space narrowing. Minimal the asymmetric disc bulge slightly larger on the left than right results in some flattening of the ventral surface of the thecal sac. The disc appears to reach the ventral surface of the spinal cord. Exit foramina adequate. . At the C3-C4 level, there is small central and bilateral disc bulge asymmetrically larger on the left than right that indents the ventral surface of the thecal sac and may minimally flatten the ventral surface of the cord. Central canal is slightly narrowed. Exit foramina are adequate bilaterally. PARASPINAL SOFT TISSUES: Unremarkable. OTHER FINDINGS: Lung apices clear. IMPRESSION: No acute fractures. Chronic anterior stature loss of the C5 and C6 segments felt to be degenerative in origin. Multilevel degenerative spondylosis most significantly affecting C5-C6 through the C3-C4 levels as detailed above.
== END 2018-04-03 13:58 | disposition home or self-care (01) ==
LOC: ED 11:58
DX: S16.1XXA Strain of muscle, fascia and tendon at neck level, initial encounter (principal); X50.0XXA Overexertion from strenuous movement or load, initial encounter; Y92.89 Other specified places as the place of occurrence of the external cause
CPT/HCPCS: 72125; 96372; 99282; J1885

== ENCOUNTER 2018-09-30 19:56 | Emergency (ER) | payer MEDICAID ==
[2018-09-30 19:56] VITALS: BMI 21.6
[2018-09-30 20:05] VITALS: RESP 18; O2SAT 96
--- NOTE | 2018-09-30 20:10 | ED PDOC ---
Arrival/HPI - General Chief Complaint: Substance Abuse Time Seen by Provider: 09/30/18 20:05 Historian: Patient - History of Present Illness Narrative History of Present Illness (Text): 09/30/18 20:07 38 y/o male, pmh including DM, nkda, biba for PCP abuse x 1 hour. Pt. stated that he was found smoking PCP, wondering around, picked up by the ambulance and send to the ER, offers no medical or psychological complaints. Pt. stated that he doesn't know why he is here, no cardiopulmonary/GI complaints, no neurological complaints, no homocidal or suicidal ideation, no auditory or visual hallucination, no other medical or psychological complaints. Past Medical History - Provider Review Nursing Documentation Reviewed: Yes - Past History Past History: Non-Contributing - Infectious Disease Hx of Infectious Diseases: None - Tetanus Immunization Tetanus Immunization: Up to Date - Past Medical History Past Medical History: No Previous - Cardiac Hx Cardiac Disorders: Yes Hx Hypertension: Yes - Pulmonary Hx Respiratory Disorders: Yes Hx Asthma: Yes - Neurological Hx Neurological Disorder: No - HEENT Hx HEENT Disorder: No - Renal Hx Renal Disorder: No - Endocrine/Metabolic Hx Endocrine Disorders: Yes Hx Diabetes Mellitus Type 2: Yes (iddm) - Hematological/Oncological Hx Blood Disorders: No - Integumentary Hx Dermatological Disorder: No - Musculoskeletal/Rheumatological Hx Musculoskeletal Disorders: No - Gastrointestinal Hx Gastrointestinal Disorders: No - Genitourinary/Gynecological Hx Genitourinary Disorders: No - Psychiatric Hx Psychophysiologic Disorder: No Hx Substance Use: Yes - Past Surgical History Past Surgical History: No Previous - Surgical History Other/Comment: Mass removed from left axilla 03/12/15 - Anesthesia Hx Anesthesia: Yes Hx Anesthesia Reactions: No Hx Malignant Hyperthermia: No - Suicidal Assessment Feels Threatened In Home Enviroment: No Family/Social History - Physician Review Nursing Documentation Reviewed: Yes Family/Social History: Unknown Family HX Smoking Status: Light Smoker < 10 Cigarettes Daily Hx Alcohol Use: Yes Hx Substance Use: Yes Substance used: marjuana Hx Substance Use Treatment: No Allergies/Home Meds Allergies/Adverse Reactions: Allergies No Known Allergies Allergy (Verified 03/31/18 17:35) Review of Systems - Review of Systems Constitutional: absent: Fatigue, Fevers Eyes: absent: Vision Changes ENT: absent: Hearing Changes Respiratory: absent: SOB, Cough Cardiovascular: absent: Chest Pain Gastrointestinal: absent: Abdominal Pain, Nausea, Vomiting Musculoskeletal: absent: Arthralgias, Back Pain Skin: absent: Rash, Pruritis Neurological: absent: Headache Hemo/Lymphatic: absent: Adenopathy Psychiatric: absent: Anxiety, Depression, Suicidal Ideation Physical Exam Vital Signs Reviewed: Yes Vital Signs Temp Pulse Resp BP Pulse Ox 09/30/18 19:56 98.9 F 118 H 18 149/93 H 96 Temperature: Afebrile Blood Pressure: Hypertensive Pulse: Tachycardic Respiratory Rate: Normal Appearance: Positive for: Well-Appearing, Non-Toxic, Comfortable Pain Distress: None Mental Status: Positive for: Alert and Oriented X 3 - Systems Exam Head: Present: Atraumatic, Normocephalic. No: Tenderness, Contusion, Swelling, Ecchymosis, Abrasion, Laceration, Other Pupils: Present: PERRL Extroacular Muscles: Present: EOMI Conjunctiva: Present: Normal Ears: Present: NORMAL TM, Normal Canal. No: Erythema Mouth: Present: Moist Mucous Membranes Nose (External): Present: Atraumatic. No: Abrasion, Contusion, Laceration Nose (Internal): Present: Normal Inspection, No Active Bleeding. No: Rhinorrhea, Septal Hematoma, Epistaxis Neck: Present: Normal Range of Motion, Trachea Midline. No: Meningeal Signs, MIDLINE TENDERNESS, Paraspinal Tenderness, Lymphadenopathy Respiratory/Chest: Present: Clear to Auscultation, Good Air Exchange. No: Respiratory Distress, Accessory Muscle Use, Wheezes, Decreased Breath Sounds, Rales, Retracting, Rhonchi, Tachypneic, Tender to Palpation Cardiovascular: Present: Regular Rate and Rhythm, Normal S1, S2. No: Murmurs Abdomen: No: Tenderness, Distention, Peritoneal Signs, Rebound, Guarding Back: Present: Normal Inspection Upper Extremity: Present: Normal Inspection. No: Cyanosis, Edema Lower Extremity: Present: Normal Inspection. No: Edema Neurological: Present: GCS=15, CN II-XII Intact, Speech Normal, Motor Func Grossly Intact, Gait Normal Skin: Present: Warm, Dry, Normal Color. No: Rashes Psychiatric: Present: Alert, Oriented x 3, Normal Insight, Normal Concentration Medical Decision Making ED Course and Treatment: 09/30/18 20:12 -Finger stick -Will observe for 3 hours, 23:12 09/30/18 21:26 -FS 172 09/30/18 23:12 -Pt. has been observed in the ER for over 3 hours, no withdrawals and not intoxicated, offers no medical or psychological complaints, no homocidal or suicidal ideation, no auditory or visual hallucination, refused detox. -Discharge home with education on follow up with your own pmd within 2 days, return to the ER for any new or worsening signs or symptoms. - PA / BUSINESS OFFICE DIRECTOR / Resident Statement MD/DO has reviewed & agrees with the documentation as recorded. Disposition/Present on Arrival - Present on Arrival Any Indicators Present on Arrival: No History of DVT/PE: No History of Uncontrolled Diabetes: No Urinary Catheter: No History of Decub. Ulcer: No History Surgical Site Infection Following: None - Disposition Have Diagnosis and Disposition been Completed?: Yes Diagnosis: General medical examination Disposition: HOME/ ROUTINE Disposition Time: 23:12 Patient Plan: Discharge Condition: GOOD Additional Instructions: -Discharge home with education on follow up with your own pmd within 2 days, return to the ER for any new or worsening signs or symptoms. Referrals: at [facility] [place] [Outside] - Follow up with primary Forms: [employer] (Guinean), WORK NOTE
[2018-09-30 23:35] VITALS: BP 138/86; PULSE 89
[2018-10-01 03:36] VITALS: TEMP 98
== END 2018-09-30 23:49 | disposition home or self-care (01) ==
LOC: ED 19:56
DX: Z00.00 Encounter for general adult medical examination without abnormal findings (principal); E11.9 Type 2 diabetes mellitus without complications; Z79.4 Long term (current) use of insulin; I10 Essential (primary) hypertension; F17.210 Nicotine dependence, cigarettes, uncomplicated

== ENCOUNTER 2019-01-23 00:52 | Emergency (ER) | payer MEDICAID ==
[2019-01-23 00:52] VITALS: BMI 21.6
[2019-01-23] MEDS ORDERED: Sodium Chloride 0.9% 1,000 ML IV STA ×2 (01:26→01:51)
[2019-01-23 01:39] LABS: HEMOGLOBIN 14.6 g/dL (14.0-18.0); MEAN CORPUSCULAR HEMOGLOBIN 30.2 pg (25.0-35.0); MEAN CORPUSCULAR HGB CONC 32.4 g/dl (31.0-37.0); MEAN PLATELET VOLUME 10.7 fl (7.0-11.0); RBC 4.84 10^6/uL (3.5-6.1); RED CELL DISTRIBUTION WIDTH 13.7 % (11.5-14.5); WHITE BLOOD COUNT 7.9 10^3/uL (4.5-11.0)
[2019-01-23 01:48] LABS: VENOUS BLOOD GAS BASE EXCESS 7.6 mmol/L (0.0-2.0); VENOUS BLOOD GAS PO2 89 mm/Hg (30-55); VENOUS BLOOD PH 7.42 (7.32-7.43)
--- NOTE | 2019-01-23 02:11 | ED PDOC ---
Arrival/HPI - General Chief Complaint: High Blood Sugar Time Seen by Provider: 01/23/19 01:20 Historian: Patient - History of Present Illness Narrative History of Present Illness (Text): 01/23/19 02:08 38 year old M with pmh of IDDM presents for evaluation of persistent of elevated blood sugar. Patient reports he takes levemir and humalog once per day to control his blood sugar. Patient denies any fevers, chills, headache, dizziness, chest pain, shortness of breath, dyspnea on exertion, cough, diaphoresis, abdominal pain, nausea, vomiting, diarrhea, back pain, neck pain, or any other complaint. Time/Duration: Prior to Arrival Symptom Onset: Gradual Symptom Course: Other (persistent) Activities at Onset: Light Context: Home Past Medical History - Provider Review Nursing Documentation Reviewed: Yes - Past History Past History: Non-Contributing - Infectious Disease Hx of Infectious Diseases: None - Tetanus Immunization Tetanus Immunization: Up to Date - Past Medical History Past Medical History: No Previous - Cardiac Hx Cardiac Disorders: Yes Hx Hypertension: Yes - Pulmonary Hx Respiratory Disorders: Yes Hx Asthma: Yes - Neurological Hx Neurological Disorder: No - HEENT Hx HEENT Disorder: No - Renal Hx Renal Disorder: No - Endocrine/Metabolic Hx Endocrine Disorders: Yes Hx Diabetes Mellitus Type 2: Yes (iddm) - Hematological/Oncological Hx Blood Disorders: No - Integumentary Hx Dermatological Disorder: No - Musculoskeletal/Rheumatological Hx Musculoskeletal Disorders: No - Gastrointestinal Hx Gastrointestinal Disorders: No - Genitourinary/Gynecological Hx Genitourinary Disorders: No - Psychiatric Hx Psychophysiologic Disorder: No Hx Substance Use: Yes - Past Surgical History Past Surgical History: No Previous - Surgical History Other/Comment: Mass removed from left axilla 03/12/15 - Anesthesia Hx Anesthesia: Yes Hx Anesthesia Reactions: No Hx Malignant Hyperthermia: No - Suicidal Assessment Feels Threatened In Home Enviroment: No Family/Social History - Physician Review Nursing Documentation Reviewed: Yes Family/Social History: Unknown Family HX Smoking Status: Light Smoker < 10 Cigarettes Daily Hx Alcohol Use: Yes Frequency of alcohol use: Socially Hx Substance Use: Yes Substance used: marjuana Hx Substance Use Treatment: No Allergies/Home Meds Allergies/Adverse Reactions: Allergies No Known Allergies Allergy (Verified 03/31/18 17:35) Review of Systems - Physician Review All systems were reviewed & negative as marked: Yes - Review of Systems Constitutional: Normal Eyes: Normal ENT: Normal Respiratory: Normal Cardiovascular: Normal Gastrointestinal: Normal Genitourinary Male: Normal Musculoskeletal: Normal Skin: Normal Neurological: Normal Endocrine: Normal Hemo/Lymphatic: Normal Psychiatric: Normal Physical Exam Vital Signs Reviewed: Yes Vital Signs Temp Pulse Resp BP Pulse Ox 01/23/19 00:56 98.7 F 87 18 144/99 H 97 Temperature: Afebrile Blood Pressure: Normal Pulse: Regular Respiratory Rate: Normal Appearance: Positive for: Well-Appearing, Non-Toxic, Comfortable Pain Distress: None Mental Status: Positive for: Alert and Oriented X 3 Finger Stick Blood Glucose: 444 - Systems Exam Head: Present: Atraumatic, Normocephalic Pupils: Present: PERRL Extroacular Muscles: Present: EOMI Conjunctiva: Present: Normal Mouth: Present: Moist Mucous Membranes Neck: Present: Normal Range of Motion Respiratory/Chest: Present: Clear to Auscultation, Good Air Exchange. No: Respiratory Distress, Accessory Muscle Use Cardiovascular: Present: Regular Rate and Rhythm, Normal S1, S2. No: Murmurs Abdomen: No: Tenderness, Distention, Peritoneal Signs Back: Present: Normal Inspection Upper Extremity: Present: Normal Inspection. No: Cyanosis, Edema Lower Extremity: Present: Normal Inspection. No: Edema Neurological: Present: GCS=15, Speech Normal Skin: Present: Warm, Dry, Normal Color. No: Rashes Psychiatric: Present: Alert, Oriented x 3, Normal Insight, Normal Concentration Medical Decision Making ED Course and Treatment: 01/23/19 02:12 Impression: 38 year old M presents for evaluation of persistent of elevated blood sugar Differential Diagnosis included but are not limited to: -- DKA -- Elevated blood sugar Plan: -- Labs -- Saline IV -- Reassess and disposition Prior Visits: Notes and results from previous visits were reviewed. Progress Notes: - Lab Interpretations Lab Results: pO2 89 mm/Hg (30-55) H 01/23/19 01:42 VBG pH 7.42 (7.32-7.43) 01/23/19 01:42 VBG pCO2 52.0 (40-60) 01/23/19 01:42 VBG HCO3 33.7 mmol/l (21-28) H 01/23/19 01:42 VBG O2 Sat (Calc) 97.9 % (40-65) H 01/23/19 01:42 VBG Base Excess 7.6 mmol/L (0.0-2.0) H 01/23/19 01:42 - Medication Orders Current Medication Orders: Sodium Chloride (Sodium Chloride 0.9%) 1,000 mls @ 999 mls/hr IV .Q1H1M STA Stop: 01/23/19 02:26 Last Admin: 01/23/19 01:30 Dose: 999 mls/hr eMAR Start Stop Document 01/23/19 01:30 EB (Rec: 01/23/19 01:46 EB [id number]) Intravenous Solution Start Date 01/23/19 Start Time 01:46 Sodium Chloride (Sodium Chloride 0.9%) 1,000 mls @ 999 mls/hr IV .Q1H1M STA Stop: 01/23/19 02:51 - Scribe Statement The provider has reviewed the documentation as recorded by the Scribe Johanna Ramirez All medical record entries made by the Scribe were at my direction and personally dictated by me. I have reviewed the chart and agree that the record accurately reflects my personal performance of the history, physical exam, medical decision making, and the department course for this patient. I have also personally directed, reviewed, and agree with the discharge instructions and disposition. Disposition/Present on Arrival - Present on Arrival Any Indicators Present on Arrival: No History of DVT/PE: No History of Uncontrolled Diabetes: No Urinary Catheter: No History of Decub. Ulcer: No History Surgical Site Infection Following: None - Disposition Have Diagnosis and Disposition been Completed?: Yes Diagnosis: Hyperglycemia due to type 1 diabetes mellitus Disposition: HOME/ ROUTINE Disposition Time: 03:22 Patient Plan: Discharge Condition: GOOD Discharge Instructions (ExitCare): Hyperglycemia, Adult (DC) Additional Instructions: Continue your current insulin meds/maintain diabetic diet/follow up with your doctor this week Forms: [employer] (Burmese)
[2019-01-23 02:23] LABS: ALBUMIN 3.2 g/dL (3.0-4.8); ALT/SGPT 19 U/L (7-56); AST/SGOT 17 U/L (17-59); BLOOD UREA NITROGEN 16 mg/dL (7-21); CALCIUM 8.6 mg/dL (8.4-10.5); GFR NON-AFRICAN AMERICAN > 60
[2019-01-23] MEDS ORDERED: Insulin Regular 1 UNITS/0.01 ML ML SC STA ×2 (02:46→03:11)
[2019-01-23 03:52] VITALS: BP 136/96; PULSE 73; RESP 16; TEMP 98; O2SAT 99
== END 2019-01-23 03:28 | disposition home or self-care (01) ==
LOC: ED 00:52
DX: E10.65 Type 1 diabetes mellitus with hyperglycemia (principal); F17.210 Nicotine dependence, cigarettes, uncomplicated; I10 Essential (primary) hypertension; Z79.4 Long term (current) use of insulin
CPT/HCPCS: 80053; 82803; 82948; 85027; 96372; 99283; J7030

== ENCOUNTER 2019-02-03 23:08 | Emergency (ER) | payer MEDICAID ==
[2019-02-03 23:24] VITALS: BMI 24.2
[2019-02-03 23:32] VITALS: RESP 18; TEMP 98; O2SAT 98
[2019-02-03] MEDS ORDERED: Sodium Chloride 0.9% 1,000 ML IV STA ×2 (23:34)
--- NOTE | 2019-02-03 23:47 | ED PDOC ---
Arrival/HPI - General Chief Complaint: High Blood Sugar Time Seen by Provider: 02/03/19 23:09 Historian: Patient - History of Present Illness Narrative History of Present Illness (Text): 02/03/19 23:46 A 38 year old male, whose past medical history includes hypertension, diabetes, and asthma, presents to the emergency department complaining of high blood sugar. Patient states he had 2 humalog treatments of 10 units. Patient denies any shortness of breath, chest pain, or any other complaints. PMD: Hannah Rinaldi Time/Duration: Other (earlier today) Symptom Onset: Gradual Symptom Course: Unchanged Activities at Onset: Light Context: Home Past Medical History - Provider Review Nursing Documentation Reviewed: Yes - Past History Past History: Non-Contributing - Infectious Disease Hx of Infectious Diseases: None - Tetanus Immunization Tetanus Immunization: Up to Date - Past Medical History Past Medical History: No Previous - Cardiac Hx Cardiac Disorders: Yes Hx Hypertension: Yes - Pulmonary Hx Respiratory Disorders: Yes Hx Asthma: Yes - Neurological Hx Neurological Disorder: No - HEENT Hx HEENT Disorder: No - Renal Hx Renal Disorder: No - Endocrine/Metabolic Hx Endocrine Disorders: Yes Hx Diabetes Mellitus Type 2: Yes (iddm) - Hematological/Oncological Hx Blood Disorders: No - Integumentary Hx Dermatological Disorder: No - Musculoskeletal/Rheumatological Hx Musculoskeletal Disorders: No - Gastrointestinal Hx Gastrointestinal Disorders: No - Genitourinary/Gynecological Hx Genitourinary Disorders: No - Psychiatric Hx Psychophysiologic Disorder: No Hx Substance Use: Yes - Past Surgical History Past Surgical History: No Previous - Surgical History Other/Comment: Mass removed from left axilla 03/12/15 - Anesthesia Hx Anesthesia: Yes Hx Anesthesia Reactions: No Hx Malignant Hyperthermia: No - Suicidal Assessment Feels Threatened In Home Enviroment: No Family/Social History - Physician Review Nursing Documentation Reviewed: Yes Family/Social History: No Known Family HX Smoking Status: Light Smoker < 10 Cigarettes Daily Hx Alcohol Use: Yes Hx Substance Use: Yes Substance used: marjuana Hx Substance Use Treatment: No Allergies/Home Meds Allergies/Adverse Reactions: Allergies No Known Allergies Allergy (Verified 02/03/19 23:23) Review of Systems - Physician Review All systems were reviewed & negative as marked: Yes - Review of Systems Respiratory: absent: SOB Cardiovascular: absent: Chest Pain Physical Exam - Physical Exam Narrative Physical Exam (Text): 02/03/19 23:46 Gen: VS reviewed, alert, well developed, well nourished, nontoxic, mild distress. ENT: normal pharynx. Eye: EOMI, PERRL. Neck: no JVD, supple, no adenopathy. CV: regular rate, regular rhythm, no rubs, no murmur, no gallops, S1, S2, pulses equal and strong. Pulm: no distress, clear to auscultation, no wheeze, no rhonchi, breath sounds equal, no rales. Abd: soft, nontender, no guarding, no rebound, no rigidity, normal bowel sounds. Ext: no edema. Skin: good color, no rash, no cyanosis. Psych: responds appropriately to questions, normal affect. Neuro: oriented x 3, CN2-12 intact grossly, motor intact, sensation intact. Vital Signs Reviewed: Yes Vital Signs Temp Pulse Resp BP Pulse Ox 02/03/19 23:24 98 F 73 18 134/95 H 98 Temperature: Afebrile Blood Pressure: Hypertensive Pulse: Regular Respiratory Rate: Normal Mental Status: Positive for: Alert and Oriented X 3 Medical Decision Making ED Course and Treatment: 02/03/19 23:46 Impression: 38 year old male presenting to the emergency room complaining of high blood sugar. Plan: -- CMP -- CBC -- IV fluids -- Urinalysis -- Reassess and disposition Prior Visits: Notes and results from previous visits were reviewed. Progress Notes: 02/04/19 01:57 uncomplicated hyperglycemia, glucose trending down, stable for discharge. - Medication Orders Current Medication Orders: Sodium Chloride (Sodium Chloride 0.9%) 1,000 mls @ 999 mls/hr IV .Q1H1M STA Stop: 02/04/19 00:34 Sodium Chloride (Sodium Chloride 0.9%) 1,000 mls @ 999 mls/hr IV .Q1H1M STA Stop: 02/04/19 00:34 - Scribe Statement The provider has reviewed the documentation as recorded by the Alvin Bass All medical record entries made by the Premibe were at my direction and personally dictated by me. I have reviewed the chart and agree that the record accurately reflects my personal performance of the history, physical exam, medical decision making, and the department course for this patient. I have also personally directed, reviewed, and agree with the discharge instructions and disposition. Disposition/Present on Arrival - Present on Arrival Any Indicators Present on Arrival: No History of DVT/PE: No History of Uncontrolled Diabetes: No Urinary Catheter: No History of Decub. Ulcer: No History Surgical Site Infection Following: None - Disposition Have Diagnosis and Disposition been Completed?: Yes Diagnosis: Hyperglycemia Disposition: HOME/ ROUTINE Disposition Time: 01:58 Patient Plan: Discharge Condition: STABLE Discharge Instructions (ExitCare): Hyperglycemia, Adult Additional Instructions: follow up with your primary care doctor. Forms: [employer] (Greenlandic)
[2019-02-04 00:03] LABS: BASO # 0.01 K/mm3 (0.0-2.0); BASO % 0.1 % (0.0-3.0); EOS # 0.4 (0.0-0.7); EOS % 5.7 % (1.5-5.0); HEMOGLOBIN 14.9 g/dL (14.0-18.0); LYMPH # 2.6 (1.2-3.4); LYMPH % 34.3 % (22.0-35.0); MEAN CELL VOLUME 91.3 fl (80.0-105.0); MEAN CORPUSCULAR HGB CONC 32.9 g/dl (31.0-37.0); MEAN PLATELET VOLUME 9.7 fl (7.0-11.0); MONO # 0.7 (0.1-0.6); MONO % 8.9 % (1.0-6.0); RBC 4.96 10^6/uL (3.5-6.1); RED CELL DISTRIBUTION WIDTH 14.1 % (11.5-14.5); WHITE BLOOD COUNT 7.5 10^3/uL (4.5-11.0)
[2019-02-04 01:00] LABS: ALB/GLOB RATIO 1.1 (1.1-1.8); ALBUMIN 3.9 g/dL (3.0-4.8); ALT/SGPT 13 U/L (7-56); AST/SGOT 27 U/L (17-59); BLOOD UREA NITROGEN 15 mg/dL (7-21); CALCIUM 9.3 mg/dL (8.4-10.5); GFR NON-AFRICAN AMERICAN > 60
[2019-02-04 02:01] LABS: URINE BILIRUBIN NEGATIVE (NEGATIVE); URINE BLOOD TRACE-INTACT (NEGATIVE); URINE GLUCOSE (UA) >=1000 mg/dL (NEGATIVE); URINE LEUKOCYTE ESTERASE NEGATIVE Leu/uL (NEGATIVE); URINE PROTEIN NEGATIVE mg/dL (<30 mg/dL); URINE UROBILINOGEN 0.2 E.U./dL (<1 E.U./dL)
[2019-02-04 02:04] LABS: URINE APPEARANCE CLEAR (CLEAR); URINE COLOR YELLOW (YELLOW)
[2019-02-04 02:19] VITALS: BP 130/90; PULSE 80
[2019-02-04 02:31] LABS: URINE EPITHELIAL CELLS 0 - 2 /hpf (0-5); URINE RBC 0 - 2 /hpf (0-2); URINE WBC 0 - 2 /hpf (0-6)
== END 2019-02-04 02:19 | disposition home or self-care (01) ==
LOC: ED 23:08
DX: E11.65 Type 2 diabetes mellitus with hyperglycemia (principal); F17.210 Nicotine dependence, cigarettes, uncomplicated; I10 Essential (primary) hypertension
CPT/HCPCS: 80053; 81001; 82948; 85025; 99284; J7030

== ENCOUNTER 2019-03-31 20:41 | Emergency (ER) | payer MEDICAID ==
[2019-03-31 20:41] VITALS: BMI 24.2
[2019-03-31] MEDS ORDERED: Sodium Chloride 0.9% 1,000 ML IV STA ×2 (21:15→22:12)
[2019-03-31] MEDS ORDERED: Insulin Regular 1 UNITS/0.01 ML ML IVP STA (21:16)
[2019-03-31 21:20] VITALS: BP 131/88; PULSE 100; RESP 18; TEMP 99.7; O2SAT 96
[2019-03-31 21:45] LABS: VENOUS BLOOD GAS BASE EXCESS 3.5 mmol/L (0.0-2.0); VENOUS BLOOD GAS PO2 48 mm/Hg (30-55)
[2019-03-31 21:47] LABS: BASO # 0.03 K/mm3 (0.0-2.0); BASO % 0.3 % (0.0-3.0); EOS # 0.3 (0.0-0.7); EOS % 3.5 % (1.5-5.0); LYMPH # 2.7 (1.2-3.4); LYMPH % 27.4 % (22.0-35.0); MEAN CELL VOLUME 90.4 fl (80.0-105.0); MEAN CORPUSCULAR HEMOGLOBIN 30.7 pg (25.0-35.0); MEAN CORPUSCULAR HGB CONC 33.9 g/dl (31.0-37.0); MEAN PLATELET VOLUME 10.2 fl (7.0-11.0); MONO # 0.8 (0.1-0.6); MONO % 7.8 % (1.0-6.0); RBC 5.22 10^6/uL (3.5-6.1); RED CELL DISTRIBUTION WIDTH 13.6 % (11.5-14.5); WHITE BLOOD COUNT 9.7 10^3/uL (4.5-11.0)
--- NOTE | 2019-03-31 22:16 | ED PDOC ---
Arrival/HPI - General Chief Complaint: High Blood Sugar Time Seen by Provider: 03/31/19 21:04 Historian: Patient - History of Present Illness Narrative History of Present Illness (Text): 03/31/19 22:12 39 year old male, whose past medical history includes hypertension, diabetes, and asthma, presents complaining of elevated blood sugar. Patient states she's compliant with medications. Patient denies any physical complaints. Patient denies any fever, chills, chest pain, shortness of breath, nausea, vomiting, diarrhea, urinary symptoms, back pain, neck pain, headache, dizziness, or any other complaints. PMD: Dr. Jose Symptom Onset: Gradual Symptom Course: Unchanged Activities at Onset: Light Context: Home Past Medical History - Provider Review Nursing Documentation Reviewed: Yes - Past History Past History: Non-Contributing - Infectious Disease Hx of Infectious Diseases: None - Tetanus Immunization Tetanus Immunization: Up to Date - Past Medical History Past Medical History: No Previous - Cardiac Hx Cardiac Disorders: Yes Hx Hypertension: Yes - Pulmonary Hx Respiratory Disorders: Yes Hx Asthma: Yes - Neurological Hx Neurological Disorder: No - HEENT Hx HEENT Disorder: No - Renal Hx Renal Disorder: No - Endocrine/Metabolic Hx Endocrine Disorders: Yes Hx Diabetes Mellitus Type 2: Yes (iddm) - Hematological/Oncological Hx Blood Disorders: No - Integumentary Hx Dermatological Disorder: No - Musculoskeletal/Rheumatological Hx Musculoskeletal Disorders: No - Gastrointestinal Hx Gastrointestinal Disorders: No - Genitourinary/Gynecological Hx Genitourinary Disorders: No - Psychiatric Hx Psychophysiologic Disorder: No Hx Substance Use: Yes - Past Surgical History Past Surgical History: No Previous - Surgical History Other/Comment: Mass removed from left axilla 03/12/15 - Anesthesia Hx Anesthesia: Yes Hx Anesthesia Reactions: No Hx Malignant Hyperthermia: No - Suicidal Assessment Feels Threatened In Home Enviroment: No Family/Social History - Physician Review Nursing Documentation Reviewed: Yes Family/Social History: No Known Family HX Smoking Status: Light Smoker < 10 Cigarettes Daily Hx Alcohol Use: Yes Hx Substance Use: Yes Substance used: marjuana Hx Substance Use Treatment: No Allergies/Home Meds Allergies/Adverse Reactions: Allergies No Known Allergies Allergy (Verified 03/31/19 21:14) Home Medications: Home Meds Medication Instructions Recorded Confirmed Insulin Detemir [Levemir] 10 unit SQ HS 03/31/19 03/31/19 Review of Systems - Physician Review All systems were reviewed & negative as marked: Yes - Review of Systems Constitutional: absent: Fevers, Other (chills) Respiratory: absent: SOB Cardiovascular: absent: Chest Pain Gastrointestinal: absent: Diarrhea, Nausea, Vomiting Genitourinary Male: absent: Dysuria, Frequency, Hematuria Musculoskeletal: absent: Back Pain, Neck Pain Neurological: absent: Headache, Dizziness Physical Exam Vital Signs Reviewed: Yes Vital Signs Temp Pulse Resp BP Pulse Ox 03/31/19 21:11 99.7 F H 100 H 18 131/88 96 Temperature: Febrile Blood Pressure: Normal Pulse: Tachycardic Respiratory Rate: Normal Appearance: Positive for: Well-Appearing, Non-Toxic, Comfortable Pain Distress: None Mental Status: Positive for: Alert and Oriented X 3 Finger Stick Blood Glucose: 387 - Systems Exam Head: Present: Atraumatic, Normocephalic Pupils: Present: PERRL Extroacular Muscles: Present: EOMI Conjunctiva: Present: Normal Mouth: Present: Moist Mucous Membranes Neck: Present: Normal Range of Motion Respiratory/Chest: Present: Clear to Auscultation, Good Air Exchange. No: Respiratory Distress, Accessory Muscle Use Cardiovascular: Present: Regular Rate and Rhythm, Normal S1, S2. No: Murmurs Abdomen: No: Tenderness, Distention, Peritoneal Signs Back: Present: Normal Inspection Upper Extremity: Present: Normal Inspection. No: Cyanosis, Edema Lower Extremity: Present: Normal Inspection. No: Edema Neurological: Present: GCS=15, CN II-XII Intact, Speech Normal Skin: Present: Warm, Dry, Normal Color. No: Rashes Psychiatric: Present: Alert, Oriented x 3, Normal Insight, Normal Concentration Medical Decision Making ED Course and Treatment: 03/31/19 22:19 Impression: 39 year old male presents complaining of elevated blood sugar tonight. Plan: -- VBG -- Labs -- Humulin R, IV Fluids -- Urine Culture -- Urinalysis -- Reassess and disposition Prior Visits: Notes and results from previous visits were reviewed. Progress Notes: 03/31/19 23:13 On re-evaluation, patient is in no acute distress. I have discussed the results and plan with the patient, who expresses understanding. Patient in agreement with plan to be discharged home. Patient is stable for discharge. Patient was instructed to follow up with physician or return if symptoms worsen or new concerning symptoms arise. - Lab Interpretations Lab Results: pO2 48 mm/Hg (30-55) 03/31/19 21:36 VBG pH 7.40 (7.32-7.43) 03/31/19 21:36 VBG pCO2 47.0 (40-60) 03/31/19 21:36 VBG HCO3 29.1 mmol/l (21-28) H 03/31/19 21:36 VBG Total CO2 30.5 mmol.L (22-28) H 03/31/19 21:36 VBG O2 Sat (Calc) 89.0 % (40-65) H 03/31/19 21:36 VBG Base Excess 3.5 mmol/L (0.0-2.0) H 03/31/19 21:36 VBG Potassium 4.8 mmol/L (3.6-5.2) 03/31/19 21:36 Sodium 136.0 mmol/L (132-148) 03/31/19 21:36 Chloride 99.0 mmol/L (98-107) 03/31/19 21:36 Glucose 417 mg/dl (75-110) H* 03/31/19 21:36 Lactate 1.0 mmol/L (0.7-2.1) 03/31/19 21:36 FiO2 21.0 % 03/31/19 21:36 Crit Value Called To Ynes watson 03/31/19 21:36 [place] [id number] 03/31/19 21:36 Blood Gas Notified Time 214403/31/19 21:36 I have reviewed the lab results: Yes - Medication Orders Current Medication Orders: Sodium Chloride (Sodium Chloride 0.9%) 1,000 mls @ 999 mls/hr IV .Q1H1M STA Stop: 03/31/19 22:15 Last Admin: 03/31/19 21:45 Dose: 999 mls/hr eMAR Start Stop Document 03/31/19 21:45 SS (Rec: 03/31/19 21:45 SS [id number]) Intravenous Solution Start Date 03/31/19 Start Time 21:45 End Date 03/31/19 End time 22:45 Total Infusion Time 60 Discontinued Medications Insulin Human Regular (Humulin R) 6 units IVP STAT STA Stop: 03/31/19 21:17 Last Admin: 03/31/19 21:53 Dose: 6 units IVP Administration Document 03/31/19 21:53 SS (Rec: 03/31/19 21:53 SS [id number]) Charges for Administration # of IVP Administrations 1 - Scribe Statement The provider has reviewed the documentation as recorded by the Alvin Rios Provider Scribe Attestation: All medical record entries made by the Scribe were at my direction and pers onally dictated by me. I have reviewed the chart and agree that the record accurately reflects my personal performance of the history, physical exam, medical decision making, and the department course for this patient. I have also personally directed, reviewed, and agree with the discharge instructions and disposition. Disposition/Present on Arrival - Present on Arrival Any Indicators Present on Arrival: Yes History of DVT/PE: No History of Uncontrolled Diabetes: Yes Urinary Catheter: No History of Decub. Ulcer: No History Surgical Site Infection Following: None - Disposition Have Diagnosis and Disposition been Completed?: Yes Diagnosis: Hyperglycemia due to type 1 diabetes mellitus Disposition: HOME/ ROUTINE Disposition Time: 23:00 Condition: IMPROVED Discharge Instructions (ExitCare): Type 1 Diabetes Additional Instructions: JOSE WYNN, thank you for letting us take care of you today. The emergency medical care you received today was directed at your acute symptoms. If you were prescribed any medication, please fill it and take as directed. It may take several days for your symptoms to resolve. Return to the Emergency Department if your symptoms worsen, do not improve, or if you have any other problems. Please contact your doctor or call one of the physicians/clinics you have been referred to that are listed on the Patient Visit Information form that is included in your discharge packet. Bring any paperwork you were given at discharge with you along with any medications you are taking to your follow up visit. Our treatment cannot replace ongoing medical care by a primary care provider outside of the emergency department. Thank you for allowing the [facility] team to be part of your care today. Take your medication as prescribed and follow up with your primary care doctor in 2-3 days for re-evaluation and further management. Referrals: PCP,NO [Primary Care Provider] - Follow up with primary Forms: [employer] ([place])
[2019-03-31 22:49] LABS: ALB/GLOB RATIO 1.2 (1.1-1.8); ALBUMIN 3.5 g/dL (3.0-4.8); ALT/SGPT 23 U/L (7-56); AST/SGOT 18 U/L (17-59); BLOOD UREA NITROGEN 27 mg/dL (7-21); CALCIUM 8.6 mg/dL (8.4-10.5); GFR NON-AFRICAN AMERICAN > 60
== END 2019-03-31 23:15 | disposition home or self-care (01) ==
LOC: ED 20:41
DX: E10.65 Type 1 diabetes mellitus with hyperglycemia (principal); F17.210 Nicotine dependence, cigarettes, uncomplicated; I10 Essential (primary) hypertension
CPT/HCPCS: 80053; 82009; 82803; 82948; 85025; 96361; 96374; 99283; J7030